=== PATIENT | female | born 1995 | race Caucasian/White ===

== ENCOUNTER 2018-03-27 01:44 | Emergency (ER) | payer BC ==
[~2018-03-27] VITALS: Ht 162.6 cm; Wt 68.0 kg
[2018-03-27 02:09] VITALS: BP_SYST 148
--- NOTE | 2018-03-27 03:05 | NUR ---
PT WHEELED TO BED 2 WITH PARENT, FOR EVALUATION
--- NOTE | 2018-03-27 03:10 | NUR ---
Pt came in with a complaint of right toe pain, nitro tank fell on the toe at work as verbalized by the Pt. Denies tingling, motor weakness noted. Safety precaution observered, will continue to monitor Pt.
--- NOTE | 2018-03-27 03:15 | NUR ---
ER MD Souza at bedside for medical evaluation.
[2018-03-27] MEDS ORDERED: LIDOCAINE 1% 10 MG/ML, 20 ML MDV INJ ONE (03:30)
[2018-03-27] MEDS ORDERED: LIDOCAINE 1%, 20 ML MDV 20 ML ONE (03:36)
[2018-03-27 04:30] VITALS: BP_SYST 148
--- NOTE | 2018-03-27 04:30 | NUR ---
Pt left without signing discharge papers.
== END 2018-03-27 04:30 | disposition home or self-care (01) ==
LOC: SED 01:44
DX: S93.124A Dislocation of metatarsophalangeal joint of right lesser toe(s), initial encounter (principal); S90.211A Contusion of right great toe with damage to nail, initial encounter; W20.8XXA Other cause of strike by thrown, projected or falling object, initial encounter; Y93.89 Activity, other specified; Y92.69 Other specified industrial and construction area as the place of occurrence of the external cause; Y99.9 Unspecified external cause status
CPT/HCPCS: 11740; 28630; 73630; 73660; 99284; J2001